=== PATIENT | female | born 1935 | race Caucasian/White ===

== ENCOUNTER 2016-09-18 08:54 | Emergency (ER) | payer OTHER ==
[2016-09-18] MEDS ORDERED: NORMAL SALINE 10 ML SYRINGE FLUSH IVP PRN (09:07)
--- NOTE | 2016-09-18 09:18 | EKG ---
[address] [address] Measurements Intervals [place] Rate: 76 P: 77 SD: 194 QRS: 61 QRSD: 139 T: 58 QT: 403 QTc: 434 Interpretive Statements SINUS RHYTHM WITH FREQUENT VENTRICULAR PREMATURE COMPLEXES RIGHT BUNDLE BRANCH BLOCK [120+ ms QRS DURATION, UPRIGHT V1, 40+ ms S IN I/aVL/V4/V5/V6] WARNING: DATA QUALITY MAY AFFECT INTERPRETATION No previous ECG available for comparison Electronically Signed On 09-18-16 11:05:30 MDT by Vj Corcoran MD [email or web address]
[2016-09-18] MEDS ORDERED: Sodium Chloride 0.9% 1,000 ML PRIMARY IV ONE (09:20)
[2016-09-18 09:40] LABS: BLOOD UREA NITROGEN 37 mg/dL (7-22); BUN/CREATININE RATIO 28.46 (6-20); CALCIUM 8.6 mg/dL (8.7-10.7); SERUM ALBUMIN 3.5 g/dL (3.5-4.8)
[2016-09-18 09:51] LABS: HEMATOCRIT 39.2 % (37.0-47.0); HEMOGLOBIN 10.9 g/dL (12.0-16.0); MEAN CORPUSCULAR HEMOGLOBIN 28.9 PG (27-31); MEAN CORPUSCULAR HGB CONC 27.8 g/dL (33-37); RED BLOOD COUNT 3.77 10^6/uL (4.20-5.40)
[2016-09-18 09:52] LABS: BASOPHILS # (AUTO) 0.04 10*3/UL; BASOPHILS % (AUTO) 0.5 % (0-1); EOSINOPHILS # (AUTO) 0.19 10*3/UL; EOSINOPHILS % (AUTO) 2.6 % (0-8); LYMPHOCYTES # (AUTO) 0.86 10*3/uL; MEAN PLATELET VOLUME 8.6 FL (7.4-12.2); MONOCYTES # (AUTO) 0.29 10*3/UL (0.3-0.8); MONOCYTES % (AUTO) 3.9 % (5-15); PLATELET MORPHOLOGY COMMENT NORMAL MORPHOLOGY (NORM); WBC MORPHOLOGY COMMENT NORMAL MORPHOLOGY (NORM)
[2016-09-18 09:53] LABS: CLARITY,URINE CLEAR (CLEAR); COLOR,URINE YELLOW; GLUCOSE, URINE (UA) NEGATIVE (NEG); NITRATE,URINE NEGATIVE (NEG); OCCULT BLOOD,URINE NEGATIVE (NEG); PROTEIN,URINE 100 mg/dl (NEG); URINE SAMPLE TYPE CATH SPECIMEN
[2016-09-18 09:54] LABS: RBC MORPHOLOGY COMMENT SEE COMMENTS (NORM)
[2016-09-18 09:54] LABS: BILIRUBIN,URINE SMALL (NEG); UROBILINOGEN,URINE 0.2 EU/dL (0.2)
[2016-09-18 09:56] VITALS: TEMP 96.2
[2016-09-18 09:57] LABS: RBC,URINE 0 /hpf; URINE CASTS RARE; URINE CRYSTALS FEW; WBC,URINE 0
[2016-09-18 10:01] LABS: ABG BASE EXCESS 9 MMOL/L (-2-2); ABG OXYGEN SATURATION 99 % (90-100); ABG PCO2 127 MMHG (34-38); ABG PH 7.09 (7.35-7.45); ABG PO2 215 MMHG (65-75); ALLEN TEST Y; COLLECTION SITE L RADIAL
[2016-09-18] MEDS ORDERED: FUROSEMIDE 10 MG/1 ML - 4 ML IVP ONE (10:25)
[2016-09-18 11:00] LABS: ABG PCO2 > 130 MMHG (34-38); ABG PH 7.08 (7.35-7.45); ALLEN TEST Y; COLLECTION SITE L RADIAL
--- NOTE | 2016-09-18 11:25 | DI ---
XR CXR 1VW,09/18/2016 9:10 AM: Clinical History: Hypoxia and altered mental status. Previous Exam: None at this facility. Findings: A single frontal radiograph of the chest is obtained, and demonstrates cardiomegaly. Postsurgical tanya nges are seen consistent with prior CABG. Overlying EKG leads are seen. There is some increased inter stitial markings and density in the lung bases. Impression: Cardiomegaly and increased interstitial markings may represent congestive heart failure. Correlate cl inically.
[2016-09-18] MEDS ORDERED: MORPHINE SULFATE 4 MG/1 ML IVP ONE (12:45)
[2016-09-18] MEDS ORDERED: MORPHINE SULFATE 4 MG/1 ML ONE (12:47)
[2016-09-18 12:48] LABS: ABG PCO2 > 130 MMHG (34-38); ABG PH 6.96 (7.35-7.45); ABG PO2 58 MMHG (65-75); COLLECTION SITE R RADIAL
[2016-09-18 12:49] LABS: ALLEN TEST Y
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
[2016-09-18 14:41] VITALS: RESP 25
== END 2016-09-18 14:25 | disposition expired ==
LOC: ER 08:54
DX: J96.21 Acute and chronic respiratory failure with hypoxia (principal); J96.22 Acute and chronic respiratory failure with hypercapnia; I50.23 Acute on chronic systolic (congestive) heart failure; R41.82 Altered mental status, unspecified; Z95.1 Presence of aortocoronary bypass graft
CPT/HCPCS: 36415; 36600; 71010; 80053; 81001; 81003; 82803; 83605; 83880; 85025; 85379; 87040; 93005; 93010; 94660; 96374; 96375; 99284 ×2; J1250; J1940; J2270